=== PATIENT | female | born 1965 | race Caucasian/White ===

== ENCOUNTER 2017-05-19 03:24 | Emergency (ER) | payer MEDICAID ==
[~2017-05-19] VITALS: Ht 165.1 cm; Wt 48.5 kg
[~2017-05-19 03:24] MED LIST: AZITHROMYCIN250 MG ORAL; NORCO 10/3251 EA ORAL; ROXICODONE15 MG ORAL; SOMA350 MG PO; hormone cream TOPIC
[2017-05-19] MEDS ORDERED: HYDROmorphone 1mg/ml Carpuject IM ONE (04:00)
--- NOTE | 2017-05-19 04:03 | Emergency Room Report ---
History of Present Illness General Chief Complaint: Pain Source: Patient Present Illness HPI Is a 52-year-old female with a history of chronic back pain. She had 2 failed back surgery. She is on narcotic regimen with oxycodone and soma. She is seen a pain specialist already. For the last week she has finals and also she has been take care of her parents. Now she complaining of lower back pain is worse than usual. No radiation. No incontinence of bowel or urine. No fever or chills. No trauma. She took her oxycodone as scheduled and doesn't have any more for breakthrough pain. She also complaining of any lump in her right breast. She had it removed a few years back. Now she felt a lump in that area. Denies any fever or chills. No nausea no vomiting. No trauma. No redness. Allergies: Coded Allergies: IBUPROFEN (Verified Allergy, Mild, Rash, 05/28/14) MORPHINE (Verified Allergy, Mild, Itching, 05/28/14) TETRACYCLINE (Verified Allergy, Mild, Rash, 05/28/14) UNKNOWN ASPIRIN (Verified Allergy, Unknown, Rash, 05/28/14) Patient History Past Medical History: see triage record, old chart reviewed Past Surgical History: other Pertinent Family History: none Social History: Denies: smoking Now: No Immunizations: other Reviewed Nursing Documentation: PMH: Agreed, PSxH: Agreed Nursing Documentation-PMH Hx Cardiac Problems: No - ARTHRITIS, SCIATICA, Hx Asthma: No Hx Diabetes: No Hx Cancer: No Hx Gastrointestinal Problems: No Hx Parkinson's Disease: No Hx Seizures: No Review of Systems Eye: Denies: blurred vision, eye pain ENT: Denies: ear pain, nose congestion, throat swelling Respiratory: Denies: cough, shortness of breath Cardiovascular: Denies: chest pain, palpitations Gastrointestinal: Denies: abdominal pain, diarrhea, nausea, vomiting Musculoskeletal: Reports: back pain, Denies: joint pain Skin: Denies: rash Neurological: Denies: headache, numbness Endocrine: Denies: increased thirst, increased urine Hematologic/Lymphatic: Denies: easy bruising All Other Systems: negative except mentioned in HPI Physical Exam Vital Signs Date Time Temp Pulse Resp B/P Pulse Ox O2 Delivery O2 Flow Rate FiO2 05/19/17 03:33 98.1 64 16 155/78 98 Room Air vitals with hypertension Sp02 EP Interpretation: reviewed, normal General Appearance: well appearing, no apparent distress, alert Head: normocephalic, atraumatic Eyes: bilateral eye EOMI, bilateral eye PERRL ENT: hearing grossly normal, normal pharynx Neck: full range of motion, supple, no meningismus Respiratory: chest non-tender, lungs clear, normal breath sounds, other - Right breast laterally, there is hardness that is probably from the end of the sutures. This exam was done with female RN nurse specialist. Cardiovascular #1: regular rate, rhythm, no murmur Gastrointestinal: normal bowel sounds, non tender, no mass, no organomegaly, no bruit, non-distended Musculoskeletal: back normal - Diffuse lower back tenderness. No step-off., gait/station normal, normal range of motion Neurologic: alert, oriented x3 Psychiatric: mood/affect normal Skin: warm/dry Medical Decision Making Diagnostic Impression: Primary Impression: Chronic pain Qualified Codes: G89.4 - Chronic pain syndrome Additional Impressions: Low back pain Qualified Codes: M54.5 - Low back pain Breast mass in female ER Course Patient presents with exacerbation of her chronic back pain. No evidence of cauda equina syndrome, spinal epidural abscess, or neoplastic process. Pain is better after IM Dilaudid. We'll discharge home. Her breast mass is most likely secondary to scar tissue and the tied ends of the sutures. I see no infection or abscess. Last Vital Signs Date Time Temp Pulse Resp B/P Pulse Ox O2 Delivery O2 Flow Rate FiO2 05/19/17 03:33 98.1 64 16 155/78 98 Room Air Status: improved Disposition: HOME, SELF-CARE Condition: Stable Referrals: [facility] (PCP) Additional Instructions: Followup with your Dr. within a week. Return if worse. Followup for your refills. LALO SAMS M.D. May 19, 2017 04:03
[2017-05-19 04:21] VITALS: BP 155/78
== END 2017-05-19 04:20 | disposition home or self-care (01) ==
LOC: EMR 03:54
DX: G89.29 Other chronic pain (principal); M54.9 Dorsalgia, unspecified; Z88.0 Allergy status to penicillin; Z88.6 Allergy status to analgesic agent; N63 Unspecified lump in breast
CPT/HCPCS: 96372; 99283; J1170

== ENCOUNTER 2017-06-17 03:20 | Emergency (ER) | payer MEDICAID ==
[~2017-06-17] VITALS: Ht 165.1 cm; Wt 49.0 kg
[2017-06-17 03:35] VITALS: BP 133/78
--- NOTE | 2017-06-17 03:50 | Emergency Room Report ---
History of Present Illness General Chief Complaint: Lower Back Pain or Injury Source: Patient Present Illness HPI Is a 52-year-old female with history of 2 failed back surgery. She presents with right lower back pain. She is out of her pain medication. Denies any nausea vomiting. Denies any fever or chills. Pain is 10 out of 10. Said that she was helping her dad on his boat and jerked her back. No other complaint. No incontinence of bowel or urine. No fever chills but no radiation. Allergies: Coded Allergies: IBUPROFEN (Verified Allergy, Mild, Rash, 06/17/17) MORPHINE (Verified Allergy, Mild, Itching, 06/17/17) TETRACYCLINE (Verified Allergy, Mild, Rash, 06/17/17) UNKNOWN ASPIRIN (Verified Allergy, Unknown, Rash, 06/17/17) Patient History Past Medical History: see triage record, old chart reviewed Past Surgical History: other Pertinent Family History: none Social History: Denies: smoking Last Menstrual Period: n/a Now: No Immunizations: other Reviewed Nursing Documentation: PMH: Agreed, PSxH: Agreed Nursing Documentation-PMH Past Medical History: No History, Except For Hx Cardiac Problems: No - ARTHRITIS, SCIATICA, Hx Asthma: No Hx Diabetes: No Hx Cancer: No Hx Gastrointestinal Problems: No Hx Parkinson's Disease: No Hx Seizures: No Review of Systems Eye: Denies: blurred vision, eye pain ENT: Denies: ear pain, nose congestion, throat swelling Respiratory: Denies: cough, shortness of breath Cardiovascular: Denies: chest pain, palpitations Gastrointestinal: Denies: abdominal pain, diarrhea, nausea, vomiting Musculoskeletal: Reports: back pain, Denies: joint pain Skin: Denies: rash Neurological: Denies: headache, numbness Endocrine: Denies: increased thirst, increased urine Hematologic/Lymphatic: Denies: easy bruising All Other Systems: negative except mentioned in HPI Physical Exam Vital Signs Date Time Temp Pulse Resp B/P Pulse Ox O2 Delivery O2 Flow Rate FiO2 06/17/17 03:31 98.2 72 16 133/78 98 Room Air vitals normal Sp02 EP Interpretation: reviewed, normal General Appearance: well appearing, no apparent distress, alert Head: normocephalic, atraumatic Eyes: bilateral eye EOMI, bilateral eye PERRL ENT: hearing grossly normal, normal pharynx Neck: full range of motion, supple, no meningismus Respiratory: chest non-tender, lungs clear, normal breath sounds Cardiovascular #1: regular rate, rhythm, no murmur Gastrointestinal: normal bowel sounds, non tender, no mass, no organomegaly, no bruit, non-distended Musculoskeletal: back normal - TTP over lower back diffusely, gait/station normal, normal range of motion Psychiatric: mood/affect normal Skin: warm/dry Medical Decision Making Diagnostic Impression: Primary Impression: Low back pain Qualified Codes: M54.5 - Low back pain Additional Impression: Opiate dependence Qualified Codes: F11.20 - Opioid dependence, uncomplicated ER Course Issue with exacerbation of chronic back pain. No evidence of any fracture dislocation. No evidence of cauda equina syndrome, spinal epidural abscess, or neoplastic process. We'll discharge home. Last Vital Signs Date Time Temp Pulse Resp B/P Pulse Ox O2 Delivery O2 Flow Rate FiO2 06/17/17 03:35 98.2 72 16 133/78 98 Room Air Status: improved Disposition: HOME, SELF-CARE Condition: Stable Referrals: [facility] ([facility]P) Patient Instructions: Back Pain, Adult Additional Instructions: followup with your doctor today. Return for worsening symptoms. LALO SAMS M.D. Jun 17, 2017 03:50
[2017-06-17] MEDS: Oxycodone/Acetaminophen 5-325 ORAL ONE (03:54)
[2017-06-17 04:10] VITALS: BP 129/75
== END 2017-06-17 04:10 | disposition home or self-care (01) ==
LOC: EMR 03:42
DX: M54.5 Low back pain (principal); F11.20 Opioid dependence, uncomplicated; G89.29 Other chronic pain; Z88.6 Allergy status to analgesic agent; Z88.1 Allergy status to other antibiotic agents
CPT/HCPCS: 99282

== ENCOUNTER 2017-09-08 01:41 | Emergency (ER) | payer MEDICAID ==
[~2017-09-08] VITALS: Ht 165.1 cm; Wt 48.5 kg
[2017-09-08] MEDS ORDERED: LISINOPRIL10 MG ORAL (01:59)
[2017-09-08 02:10] VITALS: BP 142/91
[2017-09-08] MEDS ORDERED: HYDROmorphone 1mg/ml Carpuject IM ONE (02:30)
--- NOTE | 2017-09-08 02:32 | Emergency Room Report ---
History of Present Illness General Chief Complaint: Back Pain-No Injury Source: Patient Present Illness HPI Patient reports to previous back surgeries The patient reports that she's on pain management Recently had to help her father including lifting him and moving him she feels that this has flared up her left shoulder and back pain Denies any focal weakness denies any chest pain or shortness of breath pain is 6 /10 localized to the lower back and left shoulder worse with movement denies any other fall or trauma Allergies: Coded Allergies: IBUPROFEN (Verified Allergy, Mild, Rash, 06/17/17) MORPHINE (Verified Allergy, Mild, Itching, 06/17/17) TETRACYCLINE (Verified Allergy, Mild, Rash, 06/17/17) UNKNOWN ASPIRIN (Verified Allergy, Unknown, Rash, 06/17/17) Patient History Past Medical History: see triage record Pertinent Family History: none Reviewed Nursing Documentation: PMH: Agreed, PSxH: Agreed Nursing Documentation-PMH Hx Cardiac Problems: No - ARTHRITIS, SCIATICA, Hx Hypertension: Yes - Hep C Hx Asthma: No Hx Diabetes: No Hx Cancer: No Hx Gastrointestinal Problems: No Hx Parkinson's Disease: No Hx Seizures: No Review of Systems All Other Systems: negative except mentioned in HPI Physical Exam Vital Signs Date Time Temp Pulse Resp B/P (MAP) Pulse Ox O2 Delivery O2 Flow Rate FiO2 09/08/17 01:55 98.2 79 18 144/87 100 Room Air Sp02 EP Interpretation: reviewed, normal General Appearance: no apparent distress Head: normocephalic, atraumatic Eyes: bilateral eye PERRL, bilateral eye EOMI ENT: hearing grossly normal, normal pharynx, TMs + canals normal, uvula midline Neck: full range of motion, supple, no meningismus, no bony tend Respiratory: lungs clear, normal breath sounds, no rhonchi, no respiratory distress, no retraction, no accessory muscle use Cardiovascular #1: normal peripheral pulses, regular rate, rhythm, no edema, no gallop, no JVD, no murmur Gastrointestinal: normal bowel sounds, non tender, soft, no mass, no organomegaly, non-distended, no guarding, no hernia, no pulsatile mass, no rebound Genitourinary: no CVA tenderness Musculoskeletal: other - Patient has discomfort with rotation of the left shoulder, uncomfortable paraspinal diffusely L-spine Neurologic: oriented x3, responsive, data communications engineer III-XII nml as tested, sensory intact Psychiatric: mood/affect normal Skin: normal color, no rash, warm/dry, palpation normal Lymphatic: normal inspection, no adenopathy Medical Decision Making Diagnostic Impression: Primary Impression: Back pain Additional Impression: Opiate dependence ER Course Multiple differentials considered Including but not limited to acute neurological, neurosurgical differentials patient however Has a benign neurological exam Patient has had to present to the emergency room on several occasions over the past few months Patient is also allergic to multiple medications essentially stating that Dilaudid works well with her Patient was given a dose of pain medication here however encouraged to closely follow up with her primary physician and pain management Last Vital Signs Date Time Temp Pulse Resp B/P (MAP) Pulse Ox O2 Delivery O2 Flow Rate FiO2 09/08/17 01:55 98.2 79 18 144/87 100 Room Air Status: improved Disposition: HOME, SELF-CARE Condition: Improved Additional Instructions: Patient is provided with the discharge instructions notified to follow up with primary doctor in the next 2-3 days otherwise return to the er with any worsening symptoms. Please note that this report is being documented using [employer] technology. This can lead to erroneous entry secondary to incorrect interpretation by the dictating instrument. BAUTISTA WAY D.O. Sep 08, 2017 02:32
[2017-09-08 03:28] VITALS: BP 120/75
== END 2017-09-08 03:28 | disposition home or self-care (01) ==
LOC: EMR 03:08
DX: M54.9 Dorsalgia, unspecified (principal); F11.20 Opioid dependence, uncomplicated; I10 Essential (primary) hypertension; B19.20 Unspecified viral hepatitis C without hepatic coma; Z88.6 Allergy status to analgesic agent
CPT/HCPCS: 96372; 99284; J1170

== ENCOUNTER 2017-11-30 22:04 | Emergency (ER) | payer MEDICAID ==
[~2017-11-30] VITALS: Ht 165.1 cm; Wt 48.5 kg
[~2017-11-30 22:04] MED LIST changes: +LISINOPRIL10 MG ORAL
[2017-11-30 22:32] VITALS: BP 130/86
--- NOTE | 2017-11-30 22:59 | Emergency Room Report ---
History of Present Illness General Chief Complaint: Pain Source: Patient, Medical Record Present Illness HPI Is a 52-year-old female with history chronic pain. She is previous back surgery. She presents with chief complaint of neck and back pain. She said this is occurring because she's have to help her father on boat. He has bladder cancer undergoing chemotherapy. She said that: There and lifting him is causing her back and packed up more. She's almost out of her pain medication. She has refill scheduled for Thursday, 2 days from now. Pain is 10 out of 10. No nausea no vomiting. No fever or chills. Allergies: Coded Allergies: IBUPROFEN (Verified Allergy, Mild, Rash, 06/17/17) MORPHINE (Verified Allergy, Mild, Itching, 06/17/17) TETRACYCLINE (Verified Allergy, Mild, Rash, 06/17/17) UNKNOWN ASPIRIN (Verified Allergy, Unknown, Rash, 06/17/17) Patient History Past Medical History: see triage record, old chart reviewed Past Surgical History: other Pertinent Family History: none Social History: Denies: alcohol use Last Menstrual Period: years Now: No Immunizations: other Reviewed Nursing Documentation: PMH: Agreed, PSxH: Agreed Nursing Documentation-PMH Hx Cardiac Problems: No - ARTHRITIS, SCIATICA, ankle surgery Hx Hypertension: Yes - Hep C Hx Asthma: No Hx Diabetes: No Hx Cancer: No Hx Gastrointestinal Problems: No Hx Parkinson's Disease: No Hx Seizures: No Review of Systems Eye: Denies: eye pain, blurred vision ENT: Denies: ear pain, nose congestion, throat swelling Respiratory: Denies: cough, shortness of breath Cardiovascular: Denies: chest pain, palpitations Gastrointestinal: Denies: abdominal pain, diarrhea, nausea, vomiting Musculoskeletal: Reports: back pain, Denies: joint pain Skin: Denies: rash Neurological: Denies: headache, numbness Endocrine: Denies: increased thirst, increased urine Hematologic/Lymphatic: Denies: easy bruising All Other Systems: negative except mentioned in HPI Physical Exam Vital Signs Date Time Temp Pulse Resp B/P (MAP) Pulse Ox O2 Delivery O2 Flow Rate FiO2 11/30/17 22:22 98.2 70 19 130/86 100 Room Air vitals normal Sp02 EP Interpretation: reviewed, normal General Appearance: well appearing, no apparent distress, alert Head: normocephalic, atraumatic Eyes: bilateral eye PERRL, bilateral eye EOMI ENT: hearing grossly normal, normal pharynx Neck: full range of motion, supple, no meningismus Respiratory: chest non-tender, lungs clear, normal breath sounds Cardiovascular #1: regular rate, rhythm, no murmur Gastrointestinal: normal bowel sounds, non tender, no mass, no organomegaly, no bruit, non-distended Musculoskeletal: back normal, gait/station normal, normal range of motion Psychiatric: mood/affect normal Skin: warm/dry Medical Decision Making Diagnostic Impression: Primary Impression: Back pain Qualified Codes: M54.5 - Low back pain Additional Impressions: Chronic pain Qualified Codes: G89.4 - Chronic pain syndrome Opiate dependence Qualified Codes: F11.20 - Opioid dependence, uncomplicated ER Course Patient presents with exacerbation of chronic pain. No evidence of cauda equina syndrome, spinal after abscess or neoplastic process. She said that she can take morphine. Last Vital Signs Date Time Temp Pulse Resp B/P (MAP) Pulse Ox O2 Delivery O2 Flow Rate FiO2 11/30/17 22:22 98.2 70 19 130/86 100 Room Air Status: improved Disposition: HOME, SELF-CARE Condition: Stable Referrals: [facility] ([facility]P) Patient Instructions: Chronic Pain Additional Instructions: Followup with your DrEmre for refill your medication. Return if symptom worsen. LALO SAMS M.D. Nov 30, 2017 22:59
[2017-11-30] MEDS ORDERED: Morphine Sulfate 4mg/ml Inj IM ONE (23:00)
[2017-11-30 23:04] VITALS: BP 130/86
== END 2017-11-30 23:04 | disposition home or self-care (01) ==
LOC: EMR 22:30
DX: M54.9 Dorsalgia, unspecified (principal); M54.2 Cervicalgia; G89.29 Other chronic pain; C67.9 Malignant neoplasm of bladder, unspecified; Z79.899 Other long term (current) drug therapy; F11.20 Opioid dependence, uncomplicated; I10 Essential (primary) hypertension; Z88.6 Allergy status to analgesic agent; Z88.1 Allergy status to other antibiotic agents
CPT/HCPCS: 96372; 99283; J2270

== ENCOUNTER 2017-12-27 12:19 | Emergency (ER) | payer MEDICAID ==
[~2017-12-27] VITALS: Ht 165.1 cm; Wt 49.0 kg
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
[2017-12-27] MEDS ORDERED: oxyCODONE HCL/Acetaminophen 5/325mg ORAL ONE (13:00)
[2017-12-27] MEDS ORDERED: HYDROmorphone 1mg/ml Carpuject IM ONE (13:45)
[2017-12-27 18:24] VITALS: BP 136/86
[2017-12-27 18:25] VITALS: BP 136/86
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
== END 2017-12-27 18:25 | disposition home or self-care (01) ==
LOC: EMR 12:52
DX: G89.29 Other chronic pain (principal); M54.2 Cervicalgia; F11.20 Opioid dependence, uncomplicated; V43.52XA Car driver injured in collision with other type car in traffic accident, initial encounter; Y92.410 Unspecified street and highway as the place of occurrence of the external cause; I10 Essential (primary) hypertension; Z88.6 Allergy status to analgesic agent; Z88.1 Allergy status to other antibiotic agents
CPT/HCPCS: 72040; 96372; 99284; J1170

== ENCOUNTER 2018-02-23 19:53 | Emergency (ER) | payer MEDICAID ==
[~2018-02-23] VITALS: Ht 165.1 cm; Wt 49.4 kg
[2018-02-23] MEDS ORDERED: LIDOCAINE700 M1 TP (21:01)
[2018-02-23] MEDS: Dexamethasone 4mg/ml vial IM ONE (21:19)
[2018-02-23] MEDS: Morphine Sulfate 4mg/ml Inj IM ONE (21:20)
--- NOTE | 2018-02-23 21:20 | Emergency Room Report ---
History of Present Illness General Chief Complaint: Pain Present Illness HPI Patient's 53-year-old female who presented after increased low back pain and neck pain. Patient prior history of chronic pain. Patient was given the previously taking oxycodone as well as Soma. Patient had previous back surgery many years ago. Patient had both anterior and posterior disc surgery. Patient states that she been having intermittent bladder spasms. She reports having normal bowel movements. She denies any fever. Allergies: Coded Allergies: IBUPROFEN (Verified Allergy, Mild, Rash, 06/17/17) TETRACYCLINE (Verified Allergy, Mild, Rash, 06/17/17) UNKNOWN ASPIRIN (Verified Allergy, Unknown, Rash, 06/17/17) Patient History Past Medical History: see triage record Reviewed Nursing Documentation: PMH: Agreed; PSxH: Agreed Nursing Documentation-PMH Hx Cardiac Problems: No - ARTHRITIS, SCIATICA, ankle surgery Hx Hypertension: Yes - Hep C Hx Asthma: No Hx Diabetes: No Hx Cancer: No Hx Gastrointestinal Problems: No Hx Parkinson's Disease: No Hx Seizures: No Review of Systems All Other Systems: negative except mentioned in HPI Physical Exam Vital Signs Date Time Temp Pulse Resp B/P (MAP) Pulse Ox O2 Delivery O2 Flow Rate FiO2 02/23/18 20:24 98.2 74 16 135/69 97 Room Air 98.2 General Appearance: well appearing, no apparent distress, alert, GCS 15, non- toxic Head: normocephalic, atraumatic ENT: hearing grossly normal, normal voice Neck: full range of motion, supple Respiratory: no respiratory distress, speaking full sentences Cardiovascular #1: normal inspection, regular rate, rhythm, no edema Gastrointestinal: normal inspection, soft, no mass Musculoskeletal: no calf tenderness Neurologic: normal inspection, alert, oriented x3, responsive, tripe cooker III-XII nml as tested, normal gait Psychiatric: mood/affect normal Skin: normal inspection, no rash Medical Decision Making Diagnostic Impression: Primary Impression: Chronic pain ER Course Patient presented for back pain.Differential diagnosis included but was not limited to herniated disc, cauda equina syndrome, abdominal aortic aneurysm, perforated ulcer, spinal epidural abscess, spinal stenosis, lumbar fracture, metastatic lesion, pyelonephritis. Patient has a benign exam and does not appear to require any further imaging or laboratory testing at this time. The patient was given medications for pain. She appears to have some back discomfort however this does not appear to be limiting her ability to walk or strength. Patient is advised follow-up with her primary care physician. The patient was given Decadron as well as morphine for pain. Last Vital Signs Date Time Temp Pulse Resp B/P (MAP) Pulse Ox O2 Delivery O2 Flow Rate FiO2 02/23/18 20:24 98.2 74 16 135/69 97 Room Air 98.2 Status: improved Disposition: HOME, SELF-CARE Condition: Stable Scripts Lidocaine (Lidocaine) 1 Each Adh..patch 700 MG TP DAILY, #30 PATCH Prov: Bull Caraballo 02/23/18 Patient Instructions: Chronic Back Pain Bull Caraballo Feb 23, 2018 21:20
[2018-02-23 21:32] LABS: APPEARANCE,URINE CLEAR; BILIRUBIN, URINE NEGATIVE (NEGATIVE); COLOR,URINE YELLOW; GLUCOSE, URINE (UA) NEGATIVE (NEGATIVE); KETONES,URINE NEGATIVE (NEGATIVE); LEUKOCYTE ESTERASE ,URINE 1+ (NEGATIVE); NITRITE,URINE NEGATIVE (NEGATIVE); PH,URINE 8 (4.5-8.0); PROTEIN,URINE NEGATIVE (NEGATIVE); UROBILINOGEN,URINE NORMAL MG/DL (0.0-1.0)
[2018-02-23 21:45] VITALS: BP 135/69
== END 2018-02-23 21:45 | disposition home or self-care (01) ==
LOC: EMR 20:35
DX: G89.29 Other chronic pain (principal); M54.5 Low back pain; M54.2 Cervicalgia; Z88.6 Allergy status to analgesic agent; Z88.1 Allergy status to other antibiotic agents
CPT/HCPCS: 81003; 81025; 96372; 99283; J1100; J2270

== ENCOUNTER 2018-05-18 20:17 | Emergency (ER) | payer MEDICAID ==
[~2018-05-18] VITALS: Ht 165.1 cm; Wt 48.5 kg
[~2018-05-18 20:17] MED LIST changes: +LIDOCAINE700 M1 TP
[2018-05-18] MEDS ORDERED: Morphine Sulfate 2mg/ml Inj IM ONE (20:45)
[2018-05-18 21:26] VITALS: BP 126/87
--- NOTE | 2018-05-20 06:47 | Emergency Room Report ---
History of Present Illness General Chief Complaint: Back Pain-No Injury Source: Patient Present Illness HPI 33-year-old female presents ED complaining of neck pain and back pain. History of chronic pain to her back with multiple back surgeries. States that she was helping lift her father today, who is in the hospital which triggered her back pain. States she took her pain medications at home which are not helping. Is on multiple medications for pain. Is currently being seen by pain management. Pain is a 10 out of 10, throbbing, nonradiating. Denies any bowel or bladder incontinence. Denies any leg or motor weakness. No other aggravating or relieving factors. Denies any other associated symptoms Allergies: Coded Allergies: IBUPROFEN (Verified Allergy, Mild, Rash, 06/17/17) TETRACYCLINE (Verified Allergy, Mild, Rash, 06/17/17) UNKNOWN ASPIRIN (Verified Allergy, Unknown, Rash, 06/17/17) Patient History Past Medical History: none Past Surgical History: none Pertinent Family History: none Social History: Denies: smoking, alcohol use, drug use Now: No Immunizations: UTD Reviewed Nursing Documentation: PMH: Agreed; PSxH: Agreed Nursing Documentation-PMH Hx Hypertension: Yes - Hep C Hx Asthma: No Hx Diabetes: No Hx Cancer: No Hx Gastrointestinal Problems: No Hx Parkinson's Disease: No Hx Seizures: No Review of Systems All Other Systems: negative except mentioned in HPI Physical Exam Vital Signs Date Time Temp Pulse Resp B/P (MAP) Pulse Ox O2 Delivery O2 Flow Rate FiO2 05/18/18 20:25 98.2 88 16 126/87 96 Room Air 98.2 Sp02 EP Interpretation: reviewed, normal General Appearance: no apparent distress, alert, GCS 15, non-toxic Head: normocephalic, atraumatic Eyes: bilateral eye normal inspection, bilateral eye PERRL ENT: hearing grossly normal, normal pharynx, no angioedema, normal voice Neck: full range of motion, supple/symm/no masses Respiratory: chest non-tender, lungs clear, normal breath sounds, speaking full sentences Cardiovascular #1: regular rate, rhythm, no edema Cardiovascular #2: 2+ carotid (R), 2+ carotid (L), 2+ radial (R), 2+ radial (L) , 2+ dorsalis pedis (R), 2+ dorsalis pedis (L) Gastrointestinal: normal bowel sounds, non tender, soft, non-distended, no guarding, no rebound Rectal: deferred Genitourinary: normal inspection, no CVA tenderness Musculoskeletal: gait/station normal, normal range of motion, non-tender, tender - paraspinal lumbar tenderness Neurologic: alert, oriented x3, responsive, motor strength/tone normal, sensory intact, speech normal Psychiatric: judgement/insight normal, memory normal, mood/affect normal, no suicidal/homicidal ideation Reflexes: 3+ bicep (R), 3+ bicep (L), 3+ tricep (R), 3+ tricep (L), 3+ knee (R) , 3+ knee (L) Skin: normal color, no rash, warm/dry, well hydrated Lymphatic: no adenopathy Medical Decision Making Diagnostic Impression: Primary Impression: Chronic pain Qualified Codes: G89.29 - Other chronic pain Additional Impression: Opiate dependence Qualified Codes: F11.29 - Opioid dependence with unspecified opioid-induced disorder ER Course Hospital Course 53-year-old female presents ED complaining of lower back pain. Differential diagnoses include: pyelonephritis, kidney stone, muscle strain, Lspine fracture Clinical course Patient placed on stretcher. After initial history and physical, I reviewed EMR. Patient has been here multiple times for back pain. On previous documentation patient had documented the same story of caring for her father which triggered her back pain I discussed this with the patient. Patient is made aware that she will not receive any additional prescriptions. I agreed to provide her with one time dose of pain medication here however I explained to the patient that the ER is not an appropriate avenue for chronic pain complaints. Patient needs to follow- up with her pain management doctor upon reassessment patient states pain has improved. Diagnosis - chronic pain, opiate dependence Stable and discharged to home. Followup with PMD/pain management. Return to ED if symptoms recur or worsen Last Vital Signs Date Time Temp Pulse Resp B/P (MAP) Pulse Ox O2 Delivery O2 Flow Rate FiO2 05/18/18 21:26 98.2 88 16 126/87 96 Room Air 98.2 Status: improved Disposition: HOME, SELF-CARE Condition: Stable Referrals: [facility]ERR[facility] (PCP) Patient Instructions: Back Pain, Adult Jhon Arizmendi MD May 20, 2018 06:47
== END 2018-05-18 21:40 | disposition home or self-care (01) ==
LOC: EMR 20:50
DX: G89.29 Other chronic pain (principal); M54.2 Cervicalgia; F11.20 Opioid dependence, uncomplicated
CPT/HCPCS: 96372; 99284; J2270

== ENCOUNTER 2018-08-27 19:53 | Emergency (ER) | payer MEDICAID ==
[~2018-08-27] VITALS: Ht 165.1 cm; Wt 48.5 kg
[2018-08-27 20:03] VITALS: BP 130/82
[2018-08-27 20:52] VITALS: BP 130/82
--- NOTE | 2018-08-30 22:47 | Emergency Room Report ---
History of Present Illness General Chief Complaint: Pain Source: Patient, Medical Record Present Illness HPI 33-year-old female presents ED for evaluation. Patient states she's had knee pain for many months now and had outpatient MRI completed of her right knee. Patient states she was told she could come to the emergency room to have the MRI read. Patient states she's had chronic knee pain for many months now. Throbbing, 10 out of 10, nonradiating. States that she ran out of her pain medication prescribed by her PMD. No other aggravating relieving factors. Denies any other associated symptoms Allergies: Coded Allergies: IBUPROFEN (Verified Allergy, Mild, Rash, 08/27/18) TETRACYCLINE (Verified Allergy, Mild, Rash, 08/27/18) UNKNOWN ASPIRIN (Verified Allergy, Unknown, Rash, 08/27/18) Patient History Past Medical History: other - Hep C Past Surgical History: none Pertinent Family History: none Social History: Denies: smoking, alcohol use, drug use Now: No Immunizations: UTD Reviewed Nursing Documentation: PMH: Agreed; PSxH: Agreed Nursing Documentation-PMH Past Medical History: No History, Except For Hx Cardiac Problems: No - ARTHRITIS, SCIATICA, ankle surgery Hx Hypertension: Yes - Hep C Hx Asthma: No Hx Diabetes: No Hx Cancer: No Hx Gastrointestinal Problems: No Hx Parkinson's Disease: No Hx Seizures: No Review of Systems All Other Systems: negative except mentioned in HPI Physical Exam Vital Signs Date Time Temp Pulse Resp B/P (MAP) Pulse Ox O2 Delivery O2 Flow Rate FiO2 08/27/18 20:00 98.2 57 17 134/84 98 Room Air 98.2 Sp02 EP Interpretation: reviewed, normal General Appearance: no apparent distress, alert, GCS 15, non-toxic Head: normocephalic Eyes: bilateral eye normal inspection, bilateral eye PERRL ENT: normal ENT inspection Neck: normal inspection Respiratory: normal inspection Cardiovascular #1: normal inspection Gastrointestinal: normal inspection Rectal: deferred Genitourinary: no CVA tenderness Musculoskeletal: tender - R knee Neurologic: alert, oriented x3, responsive, motor strength/tone normal, sensory intact, speech normal Psychiatric: normal inspection Skin: normal inspection Lymphatic: normal inspection Medical Decision Making Diagnostic Impression: Primary Impression: Chronic pain Qualified Codes: G89.4 - Chronic pain syndrome Additional Impression: Opiate dependence Qualified Codes: F11.29 - Opioid dependence with unspecified opioid-induced disorder ER Course 53-year-old female presents ED requesting an MRI be read. MRI done as outpatient differential - knee injury, chronic pain, osteoarhtrits Patient placed in chair. After initial history and physical I discussed with the patient. I explained that it is not appropriate for an emergency physician to read an MRI of the knee performed in outpatient setting. As MRI was done on an outpatient basis there is no emergency indication. I also explained that it is preferable for an orthopedic surgeon or radiologist to read this study. I explained that I will provide her with orthopedic referrals to properly evaluate her knee and evaluate her MRI Patient is then requesting for refills of her pain medication. I reviewed [facility] and patient receives extensive narcotic prescriptions on a monthly basis. I explained to the patient that I cannot provide her with any medication here or refills. Patient repeatedly asked why she cannot receive medication. I explained that the patient can go to her PMD if she requires additional medication Diagnosischronic pain, opiate dependence Stable and discharged to home. Follow-up with PMD/ortho. Return to ED if symptoms recur or worsen Last Vital Signs Date Time Temp Pulse Resp B/P (MAP) Pulse Ox O2 Delivery O2 Flow Rate FiO2 08/27/18 20:52 98.5 60 18 130/82 98 Room Air 98.5 Status: improved Disposition: HOME, SELF-CARE Condition: Stable Referrals: NON PHYSICIAN (PCP) Patient Instructions: Chronic Pain Jhon Arizmendi MD Aug 30, 2018 22:47
== END 2018-08-27 22:00 | disposition home or self-care (01) ==
LOC: EMR 21:56
DX: G89.4 Chronic pain syndrome (principal); F11.29 Opioid dependence with unspecified opioid-induced disorder; I10 Essential (primary) hypertension; M25.561 Pain in right knee; Z88.6 Allergy status to analgesic agent; Z88.8 Allergy status to other drugs, medicaments and biological substances
CPT/HCPCS: 99282

== ENCOUNTER 2019-03-13 05:45 | Emergency (ER) | payer MEDICAID ==
[~2019-03-13] VITALS: Ht 165.1 cm; Wt 48.5 kg
--- NOTE | 2019-03-13 06:03 | NUR ---
ED Nurse Note: Patient presents with complaints of pain at neck, back and arthritic areas. Patient has history of chronic pain,
[2019-03-13 06:04] VITALS: BP 128/76
--- NOTE | 2019-03-13 06:14 | Emergency Room Report ---
History of Present Illness General Chief Complaint: Pain Source: Patient Present Illness HPI Presents with 5 days worsened neck pain. She feels with the change in weather and also had she's been sleeping. She has OxyContin at home but has not been taking it because it hasn't helped her. She also has chronic pain in her right knee. She apparently has of a point with her orthopedic doctor in March. She's been he had polyuria chronic acid injections at that time. The patient has had back surgeries. Patient denies any fevers or increased weakness. She just looking to get relief from the pain at this time. Allergies: Coded Allergies: IBUPROFEN (Verified Allergy, Mild, Rash, 08/27/18) TETRACYCLINE (Verified Allergy, Mild, Rash, 08/27/18) UNKNOWN ASPIRIN (Verified Allergy, Unknown, Rash, 08/27/18) Patient History Past Medical History: see triage record Social History: Denies: smoking Social History Narrative [place] on a boat Last Menstrual Period: JESSIE Reviewed Nursing Documentation: PMH: Agreed; PSxH: Agreed Nursing Documentation-PMH Past Medical History: No History, Except For Hx Cardiac Problems: No - ARTHRITIS, SCIATICA, ankle surgery Hx Hypertension: Yes - Hep C Hx Asthma: No Hx Diabetes: No Hx Cancer: No Hx Gastrointestinal Problems: No Hx Parkinson's Disease: No Hx Seizures: No Review of Systems All Other Systems: negative except mentioned in HPI Physical Exam Vital Signs Date Time Temp Pulse Resp B/P (MAP) Pulse Ox O2 Delivery O2 Flow Rate FiO2 03/13/19 05:50 98.1 78 16 128/76 98 Room Air Sp02 EP Interpretation: reviewed, normal General Appearance: no apparent distress, alert, GCS 15, thin Head: normocephalic, atraumatic Eyes: bilateral eye normal inspection, bilateral eye PERRL, bilateral eye EOMI ENT: hearing grossly normal, normal voice Neck: full range of motion, supple, no bony tend, tender - paraspinous muscles Respiratory: no respiratory distress, speaking full sentences Cardiovascular #1: normal peripheral pulses, regular rate, rhythm Gastrointestinal: scaphoid Musculoskeletal: no calf tenderness, other - lumbar tenderness but able to walk , sit and lay down Neurologic: alert, motor strength/tone normal, sensory intact, normal gait Psychiatric: mood/affect normal Skin: no rash Medical Decision Making Diagnostic Impression: Primary Impression: Chronic pain Qualified Codes: G89.29 - Other chronic pain Additional Impression: Exacerbation of chronic neck pain ER Course Patient presents with an exacerbation of her neck pain She is requesting medication to help treat the breakthrough pain. No red flag symptoms. Patient denies any dysuria. Signed out to Dr. Maynard. Status: improved Disposition: HOME, SELF-CARE Condition: Improved Russ Rowe MD Mar 13, 2019 06:14
--- NOTE | 2019-03-13 06:42 | NUR ---
ED Nurse Note: change of shift ERMD at bedside.
[2019-03-13] MEDS ORDERED: Morphine Sulfate 2mg/ml Inj(IV/IM USE ONLY) IM ONE (06:45)
--- NOTE | 2019-03-13 06:58 | NUR ---
ED Nurse Note: Patient tolerated injection well. Patient ambulated to restroom with steady gait.
--- NOTE | 2019-03-13 07:05 | NUR ---
ED Nurse Note: Patient discharged to [employer], patient ambulatory with steady gait, no s/s of acute distress. Patient ID band removed. Patient verbalized understanding of discharge instructions. Patient accompanied to discharge window.
[2019-03-13 07:07] VITALS: BP 128/76
--- NOTE | 2019-03-13 07:09 | Emergency Room Report ---
History of Present Illness General Chief Complaint: Pain Source: Patient Present Illness HPI Patient presents with complaints of increased pain in the lower back right knee and more recently the neck area Patient reports that she also has arthritis in her neck and feels that is exacerbated Denies any chest pain or shortness of breath denies any vomiting or diarrhea denies any fevers or chills Patient has had several visits previously with similar complaints She has had extensive outpatient follow-up as well including multiple MRIs Allergies: Coded Allergies: IBUPROFEN (Verified Allergy, Mild, Rash, 08/27/18) TETRACYCLINE (Verified Allergy, Mild, Rash, 08/27/18) UNKNOWN ASPIRIN (Verified Allergy, Unknown, Rash, 08/27/18) Patient History Past Medical History: see triage record Pertinent Family History: none Last Menstrual Period: JESSIE Reviewed Nursing Documentation: PMH: Agreed; PSxH: Agreed Nursing Documentation-PMH Past Medical History: No History, Except For Hx Cardiac Problems: No - ARTHRITIS, SCIATICA, ankle surgery Hx Hypertension: Yes - Hep C Hx Asthma: No Hx Diabetes: No Hx Cancer: No Hx Gastrointestinal Problems: No Hx Parkinson's Disease: No Hx Seizures: No Review of Systems All Other Systems: negative except mentioned in HPI Physical Exam Vital Signs Date Time Temp Pulse Resp B/P (MAP) Pulse Ox O2 Delivery O2 Flow Rate FiO2 03/13/19 05:50 98.1 78 16 128/76 98 Room Air Sp02 EP Interpretation: reviewed, normal General Appearance: mild distress - Mildly uncomfortable Head: normocephalic, atraumatic Eyes: bilateral eye PERRL, bilateral eye EOMI ENT: normal pharynx Neck: supple, other - Some discomfort paraspinal C3-C4 no midline step-off Respiratory: lungs clear, no retraction, no accessory muscle use Cardiovascular #1: regular rate, rhythm Musculoskeletal: other - Patient ambulatory no obvious focal deficit, complains of discomfort to right knee with any touch Neurologic: alert, oriented x3 Skin: normal color, no rash, warm/dry Lymphatic: no adenopathy Medical Decision Making Diagnostic Impression: Primary Impression: Arthralgia Additional Impression: Back pain ER Course Patient appears to have an exacerbation of her underlying discomfort and chronic pathology consideration for other infectious and metabolic disorders are made Patient remains hemodynamically stable Patient's last visit to our emergency room was in August and appears to have had her discomfort under control Given the patient's presentation IM injection was provided Patient observed and remains hemodynamically stable and appropriate for close outpatient follow-up Last Vital Signs Date Time Temp Pulse Resp B/P (MAP) Pulse Ox O2 Delivery O2 Flow Rate FiO2 03/13/19 06:04 98.1 89 16 128/76 98 Room Air Status: improved Disposition: HOME, SELF-CARE Condition: Improved Referrals: [facility] ([facility]P) Patient Instructions: Back Pain, Adult, [id number], Joint Pain Additional Instructions: Patient is provided with the discharge instructions notified to follow up with primary doctor in the next 2-3 days otherwise return to the er with any worsening symptoms. Please note that this report is being documented using [employer] technology. This can lead to erroneous entry secondary to incorrect interpretation by the dictating instrument. Jad Maynard DO Mar 13, 2019 07:09
== END 2019-03-13 07:07 | disposition home or self-care (01) ==
LOC: EMR 06:23
DX: M54.5 Low back pain (principal); M25.561 Pain in right knee; M54.2 Cervicalgia; I10 Essential (primary) hypertension; Z86.19 Personal history of other infectious and parasitic diseases; M19.90 Unspecified osteoarthritis, unspecified site; Z88.6 Allergy status to analgesic agent
CPT/HCPCS: 96372; 99283; J2270

== ENCOUNTER 2019-06-03 02:01 | Emergency (ER) | payer MEDICAID ==
[~2019-06-03] VITALS: Ht 165.1 cm; Wt 48.5 kg
[2019-06-03 02:04] VITALS: BP 142/90
[2019-06-03 02:10] VITALS: BP 142/90
--- NOTE | 2019-06-03 02:10 | NUR ---
ED Nurse Note: Pt walked in c/o head, neck, back pain from taking Mavyret 100mg/40mg for Hep C. Pt stated she has been hurting for a few months. Pt has hx of arthritis. VSS. Pt is A&Ox4
--- NOTE | 2019-06-03 02:34 | Emergency Room Report ---
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 She presents with chief complaint of neck and back pain is been ongoing for the last few days. This got worse because she is taking hepatitis C medication. Her liver doctor told her that this will happen. She has been off of it for 3 days and pain is been severe. Her oxycodone at home is not helping. No nausea no vomiting. No fever chills. No incontinence of bowel or urine. No trauma. Pain is 9 out of 10. Worse with movement. Allergies: Coded Allergies: IBUPROFEN (Verified Allergy, Mild, Rash, 08/27/18) TETRACYCLINE (Verified Allergy, Mild, Rash, 08/27/18) UNKNOWN ASPIRIN (Verified Allergy, Unknown, Rash, 08/27/18) Patient History Past Medical History: see triage record, old chart reviewed Past Surgical History: none Pertinent Family History: none Social History: Denies: smoking Now: No Immunizations: other Reviewed Nursing Documentation: PMH: Agreed; PSxH: Agreed Nursing Documentation-PMH Hx Cardiac Problems: No - ARTHRITIS, SCIATICA, ankle surgery Hx Hypertension: Yes - Hep C Hx Asthma: No Hx Diabetes: No Hx Cancer: No Hx Gastrointestinal Problems: No Hx Parkinson's Disease: No Hx Seizures: No Review of Systems Eye: Denies: eye pain, blurred vision ENT: Denies: ear pain, nose congestion, throat swelling Respiratory: Denies: cough, shortness of breath Cardiovascular: Denies: chest pain, palpitations Gastrointestinal: Denies: abdominal pain, diarrhea, nausea, vomiting Musculoskeletal: Reports: back pain, joint pain Skin: Denies: rash Neurological: Denies: headache, numbness Endocrine: Denies: increased thirst, increased urine Hematologic/Lymphatic: Denies: easy bruising All Other Systems: negative except mentioned in HPI Physical Exam Vital Signs Date Time Temp Pulse Resp B/P (MAP) Pulse Ox O2 Delivery O2 Flow Rate FiO2 06/03/19 02:04 97.5 70 16 142/90 (107) 99 Room Air Vitals normal Sp02 EP Interpretation: reviewed, normal General Appearance: well appearing, no apparent distress, alert Head: normocephalic, atraumatic Eyes: bilateral eye PERRL, bilateral eye EOMI ENT: hearing grossly normal, normal pharynx Neck: full range of motion, supple, no meningismus Respiratory: chest non-tender, lungs clear, normal breath sounds Cardiovascular #1: regular rate, rhythm, no murmur Gastrointestinal: normal bowel sounds, non tender, no mass, no organomegaly, no bruit, non-distended Musculoskeletal: back normal, gait/station normal, normal range of motion Psychiatric: mood/affect normal Medical Decision Making Diagnostic Impression: Primary Impression: Exacerbation of chronic back pain ER Course Patient presents with exacerbation of her chronic pain. No evidence of trauma. No evidence of cauda equina syndrome, spinal epidural abscess or neoplastic process. Will discharge home. Last Vital Signs Date Time Temp Pulse Resp B/P (MAP) Pulse Ox O2 Delivery O2 Flow Rate FiO2 06/03/19 02:04 97.5 70 16 142/90 (107) 99 Room Air Status: improved Disposition: HOME, SELF-CARE Condition: Stable Additional Instructions: Follow-up with your doctor in 7 days. Return if symptoms worsen. Gautam Bourgeois MD Jun 03, 2019 02:34
--- NOTE | 2019-06-03 02:40 | NUR ---
ER DISCHARGE NOTE: Patient is cleared to be discharged per ERMD, pt is aox4, on room air, with stable vital signs. pt was given dc and prescription instructions, pt was able to verbalize understanding, pt id band removed. pt is able to ambulate with steady gait. pt took all belongings.
== END 2019-06-03 02:40 | disposition home or self-care (01) ==
LOC: EMR 02:20
DX: M54.9 Dorsalgia, unspecified (principal); G89.29 Other chronic pain; B19.20 Unspecified viral hepatitis C without hepatic coma; Z88.6 Allergy status to analgesic agent; Z88.1 Allergy status to other antibiotic agents
CPT/HCPCS: 96372; 99283; J1170

== ENCOUNTER 2019-08-03 00:28 | Emergency (ER) | payer MEDICAID ==
[~2019-08-03] VITALS: Ht 165.1 cm; Wt 48.5 kg
--- NOTE | 2019-08-03 00:45 | NUR ---
ED Nurse Note: Recieved pt on steve from home, awake, alert and oriented x 4, pt here for increased neck pain, pt has chronic neck pain s/p surgeries some years ago and at times has sudden increase in pain, denies injury, fall or any other complaints or discomforts. pt ambulatory with steady gait, drove self here, tp to be medicated with IM meds and d/c before meds reach peak, pt denies cp, sob, or any other complaints.
[2019-08-03] MEDS ORDERED: LIDODERM700 M1 TOPIC (00:50)
--- NOTE | 2019-08-03 00:50 | Emergency Room Report ---
History of Present Illness General Chief Complaint: Pain Source: Patient Present Illness HPI 54-year-old female history of multiple back surgeries presents with acute exacerbation of chronic back pain, she states she was lifting her mother 5 days ago now she has a right lower back ache, worse with movement alleviated with rest moderate severity symptoms are intermittent, she denies any bowel bladder retention/incontinence, no perianal numbness no focal weakness in the lower extremities Allergies: Coded Allergies: IBUPROFEN (Verified Allergy, Mild, Rash, 08/27/18) TETRACYCLINE (Verified Allergy, Mild, Rash, 08/27/18) UNKNOWN ASPIRIN (Verified Allergy, Unknown, Rash, 08/27/18) Patient History Past Medical History: see triage record Now: No Reviewed Nursing Documentation: PMH: Agreed; PSxH: Agreed Nursing Documentation-PMH Past Medical History: No History, Except For Hx Cardiac Problems: No - ARTHRITIS, SCIATICA, ankle surgery Hx Hypertension: Yes - Hep C Hx Asthma: No Hx Diabetes: No Hx Cancer: No Hx Gastrointestinal Problems: No Hx Parkinson's Disease: No Hx Seizures: No Review of Systems All Other Systems: negative except mentioned in HPI Physical Exam Vital Signs Date Time Temp Pulse Resp B/P (MAP) Pulse Ox O2 Delivery O2 Flow Rate FiO2 08/03/19 00:30 98.2 77 12 133/79 (97) 99 Room Air Sp02 EP Interpretation: reviewed, normal General Appearance: well appearing, no apparent distress, alert Head: normocephalic, atraumatic Eyes: bilateral eye PERRL, bilateral eye EOMI ENT: uvula midline, moist mucus membranes Neck: supple, thyroid normal, supple/symm/no masses Respiratory: lungs clear, no respiratory distress, no retraction, no accessory muscle use Cardiovascular #1: normal peripheral pulses, regular rate, rhythm, no edema, no gallop, no murmur Gastrointestinal: non tender, soft, no guarding, no rebound Musculoskeletal: normal inspection Neurologic: alert, oriented x3 Psychiatric: mood/affect normal Skin: no rash, warm/dry Medical Decision Making Diagnostic Impression: Primary Impression: Acute exacerbation of chronic low back pain ER Course The patient presents with acute onset of back pain after lifting her mother. Clinically this patient can be ruled out for serious pathology given there is a completely normal neurological exam, no history of IV drug use, and no history of bowel or bladder incontinence, no perianal numbness/tingling, no constipation or urinary retention. Once the patient's pain was adequately controlled, the patient was able to ambulate and be discharged in stable condition with anticipatory guidance provided. Last Vital Signs Date Time Temp Pulse Resp B/P (MAP) Pulse Ox O2 Delivery O2 Flow Rate FiO2 08/03/19 00:30 98.2 77 12 133/79 (97) 99 Room Air Disposition: HOME, SELF-CARE Condition: Stable Scripts Lidocaine Patch* (Lidoderm Patch*) 1 Each Adh..patch 1 PATCH TOPIC DAILY, #7 PATCH 0 Refills Patch(es) may remain in place for up to 12 hours in any 24-hour period. Prov: Christian Chaparro MD 08/03/19 Referrals: [facility]P) [facility] L[facility]e [facility]. [facility] Patient Instructions: Back Pain, Adult, [id number] Additional Instructions: The patient was provided with discharge instructions, notified to follow-up with a primary care doctor and or specialist in the next 24-48 hours, and to return to the ED if they have worsening of their symptoms. Please note that this report is being documented using [employer] technology. This can lead to erroneous entry secondary to incorrect interpretation by the dictating instrument. Christian Chaparro MD Aug 03, 2019 00:50
[2019-08-03] MEDS ORDERED: Ondansetron ODT 8mg tab ORAL ONE (01:00)
[2019-08-03] MEDS ORDERED: Hydromorphone 0.5mg/0.5ml inj IM ONE (01:00)
[2019-08-03 01:25] VITALS: BP 129/77
[2019-08-03 01:30] VITALS: BP 129/77
--- NOTE | 2019-08-03 01:30 | NUR ---
ER DISCHARGE NOTE: Patient is cleared to be discharged per ERMD, pt is aox4, on room air, with stable vital signs. pt was given dc and prescription instructions, pt was able to verbalize understanding, pt id band removed without complications. pt is able to ambulate with steady gait. pt took all belongings.
== END 2019-08-03 01:30 | disposition home or self-care (01) ==
LOC: EMR 00:45
DX: M54.5 Low back pain (principal); G89.29 Other chronic pain; B19.20 Unspecified viral hepatitis C without hepatic coma; M19.90 Unspecified osteoarthritis, unspecified site; Z88.8 Allergy status to other drugs, medicaments and biological substances; Z88.1 Allergy status to other antibiotic agents
CPT/HCPCS: 96372; J1170; Q0162; Z7502; 99283

== ENCOUNTER 2019-11-03 06:06 | Emergency (ER) | payer MEDICAID ==
[~2019-11-03] VITALS: Ht 165.1 cm; Wt 48.5 kg
[~2019-11-03 06:06] MED LIST changes: +LIDODERM700 M1 TOPIC
--- NOTE | 2019-11-03 06:15 | NUR ---
ED Nurse Note: pt walked in c/o back pain, right knee pain, toothache and headache. Pt NAD, VSS, will continue to monitor.
[2019-11-03 06:20] VITALS: BP 120/69
[2019-11-03] MEDS: Tylenol #3 tab (300mg/30mg) ORAL ONE ×2 (06:56→07:04)
--- NOTE | 2019-11-03 07:00 | NUR ---
ED Nurse Note: Pt refused to take tylenol stating "this will not help me". ERMD notified
--- NOTE | 2019-11-03 07:11 | NUR ---
HAND-OFF: Report given to Venancio CHRISTOPHER.
[2019-11-03 07:13] VITALS: BP 122/73
--- NOTE | 2019-11-03 07:13 | NUR ---
ED Nurse Note: Received report from Loi Werner RN.
--- NOTE | 2019-11-03 07:38 | Emergency Room Report ---
History of Present Illness General Chief Complaint: Pain Source: Patient, Medical Record Present Illness HPI This patient has a history of chronic pain. She is seen regularly here in the emergency department. She states that she is having an exacerbation of her back pain, neck pain and knee pain. She states she tried to relieve her symptoms by walking in a swimming pool yesterday. She states the pool was cold and she believes that this exacerbated her symptoms. She states she also has tooth pain in the location of a tooth with a previous crown. She states that she has home oral pain medications and would like an injection of a narcotic pain medication. She does have an appointment with a dentist later this afternoon to assess her tooth and undergo further intervention for the tooth that is bothering her. She has no other complaints. Allergies: Coded Allergies: IBUPROFEN (Verified Allergy, Mild, Rash, 08/27/18) TETRACYCLINE (Verified Allergy, Mild, Rash, 08/27/18) UNKNOWN ASPIRIN (Verified Allergy, Unknown, Rash, 08/27/18) Patient History Past Medical History: see triage record, other - Chronic pain, arthritis Past Surgical History: other - Spinal surgeries/fusion Social History: Denies: smoking, alcohol use, drug use Reviewed Nursing Documentation: PMH: Agreed; PSxH: Agreed Nursing Documentation-PMH Past Medical History: No History, Except For Hx Cardiac Problems: No - ARTHRITIS, SCIATICA, ankle surgery Hx Hypertension: Yes - Hep C Hx Asthma: No Hx Diabetes: No Hx Cancer: No Hx Gastrointestinal Problems: No Hx Parkinson's Disease: No Hx Seizures: No Review of Systems All Other Systems: negative except mentioned in HPI Physical Exam Vital Signs Date Time Temp Pulse Resp B/P (MAP) Pulse Ox O2 Delivery O2 Flow Rate FiO2 11/03/19 06:10 97.9 63 18 120/69 (86) 99 Room Air Sp02 EP Interpretation: reviewed, normal General Appearance: no apparent distress, alert, GCS 15, non-toxic Head: normocephalic, atraumatic ENT: hearing grossly normal, no angioedema, normal voice, other - Tooth 12 capped without surrounding erythema, normal gums. Neck: normal inspection Respiratory: no respiratory distress, no retraction, no accessory muscle use, speaking full sentences Rectal: deferred Musculoskeletal: gait/station normal, other - sitting comfortably in the hallway and walking the hallway at the end of her ED stay. Neurologic: alert, motor strength/tone normal, oriented x3, responsive, speech normal, grossly normal Psychiatric: judgement/insight normal, memory normal, mood/affect normal, no suicidal/homicidal ideation Skin: normal color Medical Decision Making Diagnostic Impression: Primary Impression: Chronic pain Additional Impression: Pain, dental ER Course This patient has a clinical presentation consistent with mechanical back pain, chronic pain and narcotic seeking behavior. No emergency etiology was identified. This patient has chronic pain. She is seen regularly in the emergency department requesting narcotics. When I inquired into why she was not going to her pain management physician, she stated that her pain management physician said she could come the emergency department to get IV narcotics if she needed it for "breakthrough." I am uncomfortable treating chronic pain with IV or IM narcotics as this is not effective in long-term pain management or indicated for chronic pain. The patient has no new injury and therefore does not require acute pain management. The patient can easily go see her chronic pain physician. I offered the patient oral narcotics and initially she adamantly refused stating that she has that at home and it does not work for her. She then demanded to speak with "my shipping and receiving supervisor." She became very angry and began using terms to describe me to include "rude," "cold-hearted animal." I explained to the patient that IV or IM narcotics are only effective for a couple hours and do not improve chronic pain. The patient's pain would then recur within the next 2 hours and would require re-dosing and is essentially ineffective in the long-term treatment of chronic pain. I am uncomfortable giving IM or IV narcotics in this situation. I declined further requests for the same. Later in the patient's ED course, after not receiving the requested stronger pain medications, the patient did agree to oral pain medication. Before the patient left the emergency department she then proceeded to berated me repeatedly calling me an "animal." She states that she is going to report me and the nursing staff in a long letter. She was very angry and indignant whenever I instructed her to follow-up with her pain management physician. The patient continued to call me names any time I walked by her in the hallway. She then began harassing the nurse stating to the nurse that she had given her a 5/325mg norco instead of a 10/325 norco which is what she received. She was given [place] 10 mg/325, a Lidoderm patch and oral Flexeril as deemed appropriate by myself for her chronic pain. This patient's behavior is consistent with narcotic seeking and opioid dependence. The patient was walking around normally without any evidence of discomfort. She would not stay in her assigned room and would verbally harass me in the hallway each time I walked by. The patient stated that I did not examine her thoroughly. Patient had become agitated at me when I was speaking with her initially and verbally angry so I was unable to complete a full exam or history. The patient did not like my demeanor in the initial evaluation and contact with the patient. I did examine the patient's oral cavity and there was no evidence of emergency medical condition or emergency dental diagnosis. I did not fully do a physical exam because the patient was so angry and relentlessly calling me rude. The patient in the hallway continued to berate me and stated I did not fully examine her, I offered to examine her at that time. The patient stated "it is too late." The patient was walking around normally sitting and standing normally and very active. The patient kept repeating that she is "reporting" me. I did not feel that this patient has an emergency medical condition that requires my intervention. The patient became so angry and agitated that further interaction between myself and her would not lead to a positive experience for either green party. The screening exam did not identify an emergency medical condition. I believe this patient has a narcotic and opioid addiction and is attempting to receive this for this purpose. The patient was angry and less very unhappy from the emergency department demanding the emergency medical service manager contact information. She also spoke with the charge nurse and the nursing shipping and receiving supervisor. Last Vital Signs Date Time Temp Pulse Resp B/P (MAP) Pulse Ox O2 Delivery O2 Flow Rate FiO2 11/03/19 06:20 97.9 18 120/69 99 Room Air 11/03/19 06:10 63 Disposition: HOME, SELF-CARE Condition: Stable Referrals: [facility] (PCP) Additional Instructions: The Emergency Department only prescribes CONTROLLED SUBSTANCES for acute injuries. There is no evidence of an emergent condition requiring the requested medication refill, or injectable pain medication, and no evidence of an acute injury. Controlled substances are very addictive and require close monitoring when being prescribed controlled substances an outpatient treatment The emergency department is not a resource to be used as outpatient followup, and therefore reserve the regular prescribing, or refill or regularly prescribed controlled substances for your PCP or your chronic pain management provider for your safety -- We urge you to follow up with your PRIMARY CARE DOCTOR who can fully evaluate you , Monitor your condition and safely prescribe any necessary medications that are controlled. Tiffany Leggett DO Nov 03, 2019 07:38
[2019-11-03] MEDS ORDERED: Cyclobenzaprine 10mg Tab ORAL ONE (07:45)
[2019-11-03] MEDS ORDERED: HYDROcodone/Acetamin 10/325 tab ORAL ONE (07:45)
[2019-11-03 08:45] VITALS: BP 122/73
--- NOTE | 2019-11-03 08:45 | NUR ---
ED Nurse Note: Pt cleared by ERMD for discharge. DC instructions was given and explained to pt and verbalized understanding of teachings. All medical deviecs such as ID band removed. Pt is AAO x4, ambulatory and left with all personal belongings.
--- NOTE | 2019-11-03 08:45 | NUR ---
ED Nurse Note: Patient came in to ED c/o toothache. ERMD went to the bedside to physically see the patient. ERMD ordered Tylenol #3 but patient refused to take the medication and stated that medication wont help her pain and she needs something that is a stronger one. Explained risk and benefits to the patient, verbally understood. Charge nurse attention was called, came in to the room and spoke with the patient. ERMD notified and ordered another pain medications which are [place] 10/ 325mg and Flexeril. Patient took the medication but still stating that it wont help her and that she is still in a lot of pain. Patient started to complain about the treatment she is getting. Reports that the doctor was not physically assess and "touch" her. Also reports that, the Nurse only gave her 5/325mg of [place]. Charge nurse addressed the said complaint. Nursing compounding and finishing supervisor was called too to speak with the patient. As to discharge summary, patient wants to redo her dischage summary. Incident report was filed.
== END 2019-11-03 08:45 | disposition home or self-care (01) ==
LOC: EMR 06:49
DX: G89.29 Other chronic pain (principal); K08.89 Other specified disorders of teeth and supporting structures; Z76.5 Malingerer [conscious simulation]; M54.30 Sciatica, unspecified side; I10 Essential (primary) hypertension; Z88.6 Allergy status to analgesic agent; Z88.1 Allergy status to other antibiotic agents
CPT/HCPCS: 99282

== ENCOUNTER 2020-05-04 03:18 | Emergency (ER) | payer MEDICAID ==
[~2020-05-04] VITALS: Ht 165.1 cm; Wt 48.5 kg
[2020-05-04 03:35] VITALS: BP 134/71
[2020-05-04] MEDS ORDERED: HYDROmorphone 1mg/ml Carpuject IM ONE (03:45)
--- NOTE | 2020-05-04 03:48 | Emergency Room Report ---
History of Present Illness General Chief Complaint: Lower Back Pain or Injury Source: Patient, Medical Record Present Illness HPI This a 55-year-old female with a history of chronic neck and back pain status post failed surgery. She is taking oxycodone at home already. She presents with exacerbation of neck and back pain. Also has dental pain is been a chronic issue. She saw dentist recently for it. Because of the pandemic, she is unable to do physical therapy with pool therapy. This caused her pain to be worsen. Worse tonight where she cannot sleep so she came in. She said pain is 10 out of 10. Worse with movement. Better with rest. No incontinence of bowel or urine. No trauma. No fever chills. Allergies: Coded Allergies: IBUPROFEN (Verified Allergy, Mild, Rash, 08/27/18) TETRACYCLINE (Verified Allergy, Mild, Rash, 08/27/18) UNKNOWN AMPICILLIN (Verified Allergy, Unknown, 05/04/20) ASPIRIN (Verified Allergy, Unknown, Rash, 08/27/18) COVID-19 Screening Contact w/high risk pt: No Recent Travel to affected area: No Experienced COVID-19 symptoms?: No COVID-19 Testing performed BUYER RENTER: No Patient History Past Medical History: see triage record, old chart reviewed Past Surgical History: other Pertinent Family History: none Social History: Denies: smoking Now: No : 0 Para: 0 Immunizations: other Reviewed Nursing Documentation: PMH: Agreed; PSxH: Agreed Nursing Documentation-PMH Hx Cardiac Problems: No - ARTHRITIS, SCIATICA, ankle surgery Hx Hypertension: Yes - Hep C Hx Asthma: No Hx Diabetes: No Hx Cancer: No Hx Gastrointestinal Problems: No Hx Parkinson's Disease: No Hx Seizures: No Review of Systems Eye: Denies: eye pain, blurred vision ENT: Denies: ear pain, nose congestion, throat swelling Respiratory: Denies: cough, shortness of breath Cardiovascular: Denies: chest pain, palpitations Gastrointestinal: Denies: abdominal pain, diarrhea, nausea, vomiting Musculoskeletal: Reports: back pain; Denies: joint pain Skin: Denies: rash Neurological: Denies: headache, numbness Endocrine: Denies: increased thirst, increased urine Hematologic/Lymphatic: Denies: easy bruising All Other Systems: negative except mentioned in HPI Physical Exam Vital Signs Date Time Temp Pulse Resp B/P (MAP) Pulse Ox O2 Delivery O2 Flow Rate FiO2 6/12/20 03:24 97.5 91 17 134/71 (92) 98 Room Air Normal Sp02 EP Interpretation: reviewed, normal General Appearance: well appearing, no apparent distress, alert Head: normocephalic, atraumatic Eyes: bilateral eye PERRL, bilateral eye EOMI ENT: hearing grossly normal, normal pharynx, other - Dental showed no obvious issue. Neck: full range of motion, supple, no meningismus Respiratory: chest non-tender, lungs clear, normal breath sounds Cardiovascular #1: regular rate, rhythm, no murmur Gastrointestinal: normal bowel sounds, non tender, no mass, no organomegaly, no bruit, non-distended Musculoskeletal: back normal, normal range of motion, gait/station normal Psychiatric: mood/affect normal Medical Decision Making Diagnostic Impression: Primary Impression: Chronic pain Qualified Codes: G89.4 - Chronic pain syndrome ER Course Patient presents with exacerbation of chronic pain. No evidence of any trauma. No evidence of any infection. No cauda equina syndrome, spinal epidural abscess or neoplastic process. Will discharge home. Last Vital Signs Date Time Temp Pulse Resp B/P (MAP) Pulse Ox O2 Delivery O2 Flow Rate FiO2 05/04/20 03:24 97.5 91 17 134/71 (92) 98 Room Air Status: improved Disposition: HOME, SELF-CARE Condition: Stable Referrals: [facility] (PCP) Additional Instructions: Follow-up with your doctor in 7 days. Call to see if you could restart physical therapy. Return if worse. Gautam Bourgeois MD May 04, 2020 03:47
[2020-05-04 03:55] VITALS: BP 132/74
== END 2020-05-04 03:55 | disposition home or self-care (01) ==
LOC: EMR 03:40
DX: M54.2 Cervicalgia (principal); M54.9 Dorsalgia, unspecified; Z88.6 Allergy status to analgesic agent; Z88.0 Allergy status to penicillin; M19.90 Unspecified osteoarthritis, unspecified site; Z86.19 Personal history of other infectious and parasitic diseases; G89.29 Other chronic pain
CPT/HCPCS: 96372; J1170; Z7502; 99283

== ENCOUNTER 2020-07-31 22:39 | Emergency (ER) | payer MEDICAID ==
[~2020-07-31] VITALS: Ht 165.1 cm; Wt 48.5 kg
[2020-07-31 22:50] VITALS: BP 126/73
--- NOTE | 2020-07-31 22:50 | NUR ---
ED Nurse Note: WALKED IN TO ED C/O HEADACHE AND NECK PAIN. DENIES ANY OTHER COMPLAINTS OR TRAUMA. VSS, NAD, AAOX4, AMBULATORY, ERMD AT BEDSIDE
[2020-07-31] MEDS ORDERED: HYDROcodone/Acetamin 7.5/325 tab ORAL ONE (23:15)
[2020-07-31] MEDS ORDERED: Methocarbamol 750mg tab ORAL ONE (23:15)
--- NOTE | 2020-07-31 23:18 | Emergency Room Report ---
History of Present Illness General Chief Complaint: Headache Source: Patient Present Illness HPI Disclaimer: Please note that this report is being documented using [employer] technology. This can lead to erroneous entry secondary to incorrect interpretation by the dictating instrument. HPI: Is a 55-year-old female with a history of degenerative disease, arthritis, multiple back surgeries presenting for evaluation of exacerbation of arthritis. Patient states she has stiffness in the base of the neck from an acute exacerbation of arthritis triggered by using her air conditioning unit over the past few days. She reports chronic back pain in the lower back status post failed disc repair surgery as well as pain in the left ankle after a fall several weeks ago. This fall was evaluated by her PMD and imaging reportedly negative. Patient is receiving chronic opiates from statuary painter and states the oxycodone she is prescribed is not relieving her pain currently. Patient participates in pool physiotherapy however due to the COVID-19 pandemic the sessions have been canceled. She reports associated posterior headache at the base of the cranium which she states is from the neck pain. Denies dizziness, vision changes, fever, chills, numbness, tingling, weakness. Headache has been gradual onset. Does not take anticoagulants. No history of intracranial bleed. Patient is ambulatory on the ankle without assistance. She states she stopped wearing the Marc wrap prescribed to let her ankle "breathe." She is requesting pain medication for breakthrough pain at this time. She states the oxycodone she is prescribed is no longer working. PMH: Degenerative disc disease PSH: Multiple back surgeries Allergies: Ampicillin, aspirin, ibuprofen, Toradol, tetracycline Social Hx: Denies drug or alcohol abuse Allergies: Coded Allergies: IBUPROFEN (Verified Allergy, Mild, Rash, 08/27/18) TETRACYCLINE (Verified Allergy, Mild, Rash, 08/27/18) UNKNOWN AMPICILLIN (Verified Allergy, Unknown, 05/04/20) ASPIRIN (Verified Allergy, Unknown, Rash, 08/27/18) COVID-19 Screening Contact w/high risk pt: No Recent Travel to affected area: No Experienced COVID-19 symptoms?: No COVID-19 Testing performed EDUCATIONAL DIAGNOSTICIAN: No Patient History Last Menstrual Period: 2014 Now: No : 0 Para: 0 Nursing Documentation-PMH Hx Cardiac Problems: No - ARTHRITIS, SCIATICA, ankle surgery Hx Hypertension: Yes Hx Asthma: No Hx Diabetes: No Hx Cancer: No Hx Gastrointestinal Problems: No Hx Neurological Problems: Yes - back sx, hep c Hx Parkinson's Disease: No Hx Seizures: No Review of Systems All Other Systems: negative except mentioned in HPI Physical Exam Vital Signs Date Time Temp Pulse Resp B/P (MAP) Pulse Ox O2 Delivery O2 Flow Rate FiO2 07/31/20 22:48 98.6 90 18 130/88 (102) 97 Room Air General: Awake and alert, no acute distress HEENT: NC/AT. EOMI. PERRLA. No nystagmus. Symmetrical facial expressions. Resp: Normal work of breathing. Skin: Intact. No abrasions, laceration or rash over the exposed skin MSK: Normal tone and bulk. Moving all extremities. No obvious deformity. Neuro: Awake and alert. Mentating appropriately. Spine: Moderate midline and paraspinal tenderness in the cervical spine extending over the trapezius bilaterally, left greater than right. Trigger point at the base of the neck on the left side. Medical Decision Making Diagnostic Impression: Primary Impression: Cervical arthritis Additional Impressions: Cervical paraspinal muscle spasm Chronic pain following surgery or procedure ER Course Is a 55-year-old female presenting for evaluation of exacerbation of arthritis in the neck. No acute trauma reported. Patient's history and physical exam most consistent with chronic pain from arthritis with possible superimposed spasm of the cervical paraspinal muscles and trapezius. Little clinical concern for spontaneous intracranial hemorrhage, atraumatic fracture, cauda equina syndrome, spinal epidural abscess or other significant pathology. Patient states she needs medication for breakthrough pain and is requesting IV morphine. I offered the patient lidocaine patches, Robaxin and Toradol to treat arthritis and spasm. Patient stated she is allergic to Toradol, aspirin, ibuprofen and other NSAIDs. I offered the patient Tylenol but she said this was ineffective. I also offered lidocaine and gabapentin but states these were also ineffective. Patient has active prescription medication for oxycodone and states she has additional pills at home. She states she did not take oxycodone today because she wanted an IV dose of pain medication. Offered the patient an oral dose [place] in the ED as she said she did not take her evening oxycodone. She initially refused and asked again for IV morphine and then bargained for intramuscular morphine. I discussed medication guidelines for atraumatic pain and muscle spasm with patient however she stated that "the government would be okay with this because they know my history." She eventually accepted the oral medications and lidocaine patch. She declined re-wrapping of the left ankle with an Marc bandage. I encouraged her to speak with her pain management physician and PMD in the morning to discuss her current pain medication regimen. She was able to safely ambulate from the emergency department. She is stable for outpatient follow-up. Last Vital Signs Date Time Temp Pulse Resp B/P (MAP) Pulse Ox O2 Delivery O2 Flow Rate FiO2 07/31/20 22:48 98.6 90 18 130/88 (102) 97 Room Air Disposition: HOME, SELF-CARE Condition: Stable Scripts Methocarbamol* (METHOCARBAMOL*) 750 Mg Tablet 750 MG ORAL FOUR TIMES A DAY PRN for For Pain, #20 TAB 0 Refills Prov: Yunier Cheema MD 07/31/20 Lidocaine (Lidocaine) 1 Each Adh..patch 700 MG TP DAILY, #30 PATCH Prov: Yunier Cheema MD 07/31/20 Referrals: [facility]ERR[facility] (PCP) Yunier Cheema MD Jul 31, 2020 23:18
[2020-07-31] MEDS ORDERED: LIDOCAINE700 M1 TP (23:20)
[2020-07-31] MEDS ORDERED: METHOCARBAMOL750 MG ORAL (23:20)
[2020-07-31 23:30] VITALS: BP 125/67
[2020-07-31 23:40] VITALS: BP 125/67
== END 2020-07-31 23:40 | disposition home or self-care (01) ==
LOC: EMR 23:04
DX: M47.812 Spondylosis without myelopathy or radiculopathy, cervical region (principal); M62.838 Other muscle spasm; G89.29 Other chronic pain; Z86.19 Personal history of other infectious and parasitic diseases; I10 Essential (primary) hypertension; Z88.6 Allergy status to analgesic agent
CPT/HCPCS: 99282

== ENCOUNTER 2020-08-25 01:00 | Emergency (ER) | payer MEDICAID ==
[~2020-08-25] VITALS: Ht 165.1 cm; Wt 49.0 kg
[~2020-08-25 01:00] MED LIST changes: +METHOCARBAMOL750 MG ORAL
[2020-08-25 01:10] VITALS: BP 143/73
--- NOTE | 2020-08-25 01:10 | NUR ---
ED Nurse Note: Patient walked into ED for c/o back and neck pain that is chronic for patient. She is requesting pain medication for break through pain at this time. Patient states she caught her mother from a fall recently and pulled a back muscle while doing so which exacerbated the pain. She denies any other trauma. Patient is aaox4, breathing is normal. She is ambulatory with steady gait.
--- NOTE | 2020-08-25 01:15 | NUR ---
ED Nurse Note: JAZMINE bedside speaking with patient. Patient is displaying drug seeking behavior and is requesting IV pain medicaiton. She states she can have narcotics for break through pain without violating her pain medication contract. Patient does not appear to be in any distress at this time. When patient is in room by herself and no staff is present, she is resting comfortably in bed with eyes closed. When staff approaches patient, she begins moaning and grasping her back and neck. Patient is able to ambulate with steady gait.
--- NOTE | 2020-08-25 01:39 | NUR ---
ED Nurse Note: Gabapentin 600mg capsule is not in ER pyxis as ordered. 2-300mg gabapentin capsules pulled from pyxis and administered.
[2020-08-25] MEDS ORDERED: Methocarbamol 750mg tab ORAL ONE (01:45)
[2020-08-25] MEDS ORDERED: HYDROcodone/Acetamin 10/325 tab ORAL ONE (01:45)
[2020-08-25] MEDS ORDERED: LIDODERM700 M1 TOPIC (01:50)
[2020-08-25] MEDS ORDERED: ROBAXIN-750750 MG PO (01:50)
[2020-08-25] MEDS ORDERED: GABAPENTIN100 MG ORAL (01:50)
--- NOTE | 2020-08-25 01:50 | Emergency Room Report ---
History of Present Illness General Chief Complaint: Back Pain-No Injury Source: Patient Present Illness HPI 55-year-old female with past medical history of chronic back pain, cervical disc disease, degenerative joint disease presents with left shoulder spasm x1 day. Patient was with her mother helping her move some things and she went to go catch her mother as she was falling, which strained her left shoulder. She tried taking her prescribed oxycodone at home, however this did not help. She not hit her head or lose consciousness. She denies any focal weakness, midline back pain, headache, neck pain, rash, fever, chills, vision changes, chest pain, shortness of breath, or other symptoms. She did not call her chronic pain doctor or her primary care doctor to come here to the emergency department. Of note, she recently had a lumbar MRI that was completely normal The patient's symptoms were chronic onset, severity was mild, duration since 1 day. Quality: Aching Past medical history: Chronic pain, cervical disc disease, degenerative joint disease Past surgical history: L5/S1 back surgery, left ankle surgery Smoking: Denies Alcohol use: Denies Drug use: Denies Review of systems: CONST: No fevers or chills, No night sweats PULMONARY: No productive cough, No shortness of breath CARDIAC: No chest pain, No palpitations GI: No vomiting, No diarrhea , No melena_or_BRBPR : No dysuria, No hematuria, No discharge NEURO: No new_focal_weakness_or_numbness, No confusion, No vision changes 14 point Review of Systems is otherwise negative except per HPI Physical Exam: GENERAL: Awake_alert_ nontoxic, no acute distress Spo2 99% on RA -normal EYES: Extraocular muscles are intact. Conjunctivae clear. Lids without swelling ENT: External nose and ear normal_in_appearance. Oropharynx clear. Head_a traumatic, Moist_oral_mucosa NECK: No JVD. No meningismus. No thyromegaly. Supple. Trachea midline RESP: Normal respiratory effort. Symmetric rise. No stridor. Clear_to_auscultation_No_rales_No_wheezes CARDIAC: Regular rate and regular rhytm. No_significant pedal edema. ABDOMEN: Soft. Nondistended. Nontender_No_rebound_or_guarding. MSK: Normal muscle tone, without rigidity. Extremities without asymmetric deformity or swelling. SKIN: Warm and dry. No visible cyanosis or pallor NEUROLOGIC: Alert, oriented x3. Motor_and_sensation_grossly_intact. No truncal ataxia. Gait_normal Psych: Normal mood and affect, normal judgment and insight - COORDINATION OF CARE Case was discussed with: Patient Any labs and imaging that were ordered were interpreted as part of the medical decision making: Medical Decision Making/Plan: Differential diagnosis: Muscle sprain/strain versus chronic osteoarthritis versus degenerative joint disease versus degenerative disc disease DOUBT acute vertebral fracture, spinal epidural abscess, spinal epidural hematoma, AAA, among others. Vitals are unremarkable. Left upper extremity is neurovascularly intact with full strength in flexion, extension, internal/external rotation. Compartments of the left upper extremity are atraumatic, soft, and compressible. On exam, pulses are equal and symmetric bilaterally. No focal neurologic defic its noted. No midline spinal step offs or deformities appreciated. There is no midline spinal pain. She has full range of motion of her neck and upper thorax in flexion, extension side bending, and rotation The patient has no significant red flags on history or exam. No mechanism for significant trauma. Patient has no vertebral deformity or midline tenderness and has a normal gait. Patient has no significant risk factors for spinal epidural emergency such as fever, IVDU, HIV, or anticoagulant use. Patient is neurologically intact without any lower extremity weakness / numbness, saddle anesthesia, urinary retention or fecal incontinence. No evidence of any emergent process of the spinal cord or cauda equina at this time. The patients symptoms appear consistent with a musculoskeletal origin. She has multiple allergies including Toradol, Motrin, aspirin, and states that Tylenol does not work well enough for her. I did perform a CURES check. I confirmed with her that she is on a chronic pain contract seeing Dr. Deniz Yadav, with last visit on August 03, 2020 where she was prescribed oxycodone 10 mg p.o. #150 tabs. She comes to the ER frequently for IV/IM medications for her chronic pain. I offered patient only oral pain medications today -- multimodal to address her likely muscle strain. She initially refused, again asking for IV medications. She then accepts norco, robaxin, and gabapentin. She again asked for IV medications which we discussed will not control her pain long-term. I encouraged patient to follow up with her chronic pain specialist in 1-2 days. Her pain still was not addressed with PO. She was give one dose of morphine IM with full relief of symptoms Pertinent results reviewed with the patient. I educated the patient on the current treatment plan including the risks, benefits, and alternatives. I also discussed the extent and limitations of the current evaluation. The patient expressed understanding and agreement with plan. I recommended chronic pain specialist for follow-up within 1-2 days. Also advised that the patient return to the Emergency Department as soon as possible if they experience any new, persistent, or worsening symptoms. The patient was counseled that they need to see their primary medical doctor in the next 1-2 days for reevaluation and further treatment, and to return immediately if symptoms change or worsen. Allergies: Coded Allergies: IBUPROFEN (Verified Allergy, Mild, Rash, 08/27/18) TETRACYCLINE (Verified Allergy, Mild, Rash, 08/27/18) UNKNOWN AMPICILLIN (Verified Allergy, Unknown, 05/04/20) ASPIRIN (Verified Allergy, Unknown, Rash, 08/27/18) COVID-19 Screening Contact w/high risk pt: No Recent Travel to affected area: No Experienced COVID-19 symptoms?: No COVID-19 Testing performed RADIO TALK SHOW HOST: No Nursing Documentation-PMH Hx Cardiac Problems: No - ARTHRITIS, SCIATICA, ankle surgery Hx Hypertension: Yes Hx Asthma: No Hx Diabetes: No Hx Cancer: No Hx Gastrointestinal Problems: No Hx Neurological Problems: Yes - back sx, hep c Hx Parkinson's Disease: No Hx Seizures: No Physical Exam Vital Signs Date Time Temp Pulse Resp B/P (MAP) Pulse Ox O2 Delivery O2 Flow Rate FiO2 08/25/20 01:05 97.9 82 18 143/73 (96) 99 Room Air Sp02 EP Interpretation: reviewed, normal Medical Decision Making Diagnostic Impression: Primary Impression: Cervical paraspinal muscle spasm Additional Impressions: Chronic pain Cervical arthritis Last Vital Signs Date Time Temp Pulse Resp B/P (MAP) Pulse Ox O2 Delivery O2 Flow Rate FiO2 08/25/20 01:05 97.9 82 18 143/73 (96) 99 Room Air Disposition: HOME, SELF-CARE Admit Decision Time: 01:47 Condition: Stable Scripts Lidocaine Patch* (Lidoderm Patch*) 1 Each Adh..patch 1 PATCH TOPIC DAILY, #7 PATCH 0 Refills Patch(es) may remain in place for up to 12 hours in any 24-hour period. Prov: Myers,Jaja D.O. 08/25/20 Gabapentin* (GABAPENTIN*) 100 Mg Capsule 200 MG ORAL THREE TIMES A DAY for 7 Days, #21 CAP Prov: Jaja Myers D.O. 08/25/20 Methocarbamol* (ROBAXIN-750*) 750 Mg Tablet 750 MG PO QID, #28 TAB 0 Refills Prov: Jaja Myers D.O. 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 Do not take oxycodone and robaxin and drive as both are sedating. Use heat packs on your left shoulder for your muscle spasm Follow-up with your doctor sooner if your condition requires a more timely clinical reevaluation. Return to the emergency department immediately if you feel that your condition is worsening or if you have any new or concerning symptoms. Review your discharge instructions and take any prescriptions given as instructed. [facility] PROVIDES FREE OR LOW-COST HEALTH SERVICES TO PEOPLE WHO CAN SHOW PROOF THAT THEY LIVE IN [facility]. TO FIND MORE CLINICS PARTNERED WITH THE [facility] TO PROVIDE SERVICE, PLEASE CALL . Jaja Myers D.O. Aug 25, 2020 01:50
[2020-08-25] MEDS ORDERED: Morphine Sulfate 2mg/ml Inj(IV/IM USE ONLY) IM ONE (02:30)
[2020-08-25 02:39] VITALS: BP 137/73
[2020-08-25 02:47] VITALS: BP 137/73
== END 2020-08-25 02:47 | disposition home or self-care (01) ==
LOC: EMR 01:10
DX: M62.838 Other muscle spasm (principal); G89.29 Other chronic pain; M47.812 Spondylosis without myelopathy or radiculopathy, cervical region; I10 Essential (primary) hypertension; Z86.19 Personal history of other infectious and parasitic diseases; Z88.6 Allergy status to analgesic agent
CPT/HCPCS: 96372; J2270; Z7502; 99283

== ENCOUNTER 2021-02-10 23:11 | Emergency (ER) | payer MEDICAID ==
[~2021-02-10] VITALS: Ht 165.1 cm; Wt 48.5 kg
[~2021-02-10 23:11] MED LIST changes: +GABAPENTIN100 MG ORAL; +ROBAXIN-750750 MG PO
--- NOTE | 2021-02-10 23:28 | Emergency Room Report ---
History of Present Illness General Chief Complaint: Neck Pain Source: Patient Present Illness HPI This is a 55-year-old female with history of failed back surgery. She also has chronic knee pain and is waiting authorization for hyaluronic acid injection. She presents with chief complaint of knee pain and neck and back pain. She said that she was on her dad's boat and as she was walking down the steps she slipped and twisted her knee. Since then the knee has been hurting and does exacerbate her back and neck pain. Her oxycodone is not helping. No direct trauma. No fever chills but no incontinence of bowel or urine. Nothing made it better. Nothing made it worse. Allergies: Coded Allergies: IBUPROFEN (Verified Allergy, Mild, Rash, 08/27/18) TETRACYCLINE (Verified Allergy, Mild, Rash, 08/27/18) UNKNOWN AMPICILLIN (Verified Allergy, Unknown, 05/04/20) ASPIRIN (Verified Allergy, Unknown, Rash, 08/27/18) COVID-19 Screening Contact w/high risk pt: No Recent Travel to affected area: No Experienced COVID-19 symptoms?: No COVID-19 Testing performed NEWSPAPER LIBRARY MANAGER: No Patient History Past Medical History: see triage record, old chart reviewed Past Surgical History: other Pertinent Family History: none Social History: Denies: smoking Now: No Immunizations: other Reviewed Nursing Documentation: PMH: Agreed; PSxH: Agreed Nursing Documentation-PMH Hx Cardiac Problems: No - ARTHRITIS, SCIATICA, ankle surgery Hx Hypertension: Yes Hx Asthma: No Hx Diabetes: No Hx Cancer: No Hx Gastrointestinal Problems: No Hx Neurological Problems: Yes - back sx, hep c Hx Parkinson's Disease: No Hx Seizures: No Review of Systems Eye: Denies: eye pain, blurred vision ENT: Denies: ear pain, nose congestion, throat swelling Respiratory: Denies: cough, shortness of breath Cardiovascular: Denies: chest pain, palpitations Gastrointestinal: Denies: abdominal pain, diarrhea, nausea, vomiting Musculoskeletal: Reports: back pain, joint pain Skin: Denies: rash Neurological: Denies: headache, numbness Endocrine: Denies: increased thirst, increased urine Hematologic/Lymphatic: Denies: easy bruising All Other Systems: negative except mentioned in HPI Physical Exam Vital Signs Date Time Temp Pulse Resp B/P (MAP) Pulse Ox O2 Delivery O2 Flow Rate FiO2 02/10/21 23:13 99.0 82 18 151/71 (97) 100 Vitals with high blood pressure Sp02 EP Interpretation: reviewed, normal General Appearance: well appearing, no apparent distress, alert Head: normocephalic, atraumatic Eyes: bilateral eye PERRL, bilateral eye EOMI ENT: hearing grossly normal, normal pharynx Neck: full range of motion, supple, no meningismus Respiratory: chest non-tender, lungs clear, normal breath sounds Cardiovascular #1: regular rate, rhythm, no murmur Gastrointestinal: normal bowel sounds, non tender, no mass, no organomegaly, no bruit, non-distended Musculoskeletal: back normal, normal range of motion, gait/station normal Psychiatric: mood/affect normal Medical Decision Making Diagnostic Impression: Primary Impression: Neck pain Additional Impression: Chronic pain Qualified Codes: G89.4 - Chronic pain syndrome ER Course Patient with exacerbation of chronic back pain and neck pain. No evidence of trauma. No evidence of cauda equina syndrome, spinal epidural abscess or neoplastic process. Last Vital Signs Date Time Temp Pulse Resp B/P (MAP) Pulse Ox O2 Delivery O2 Flow Rate FiO2 02/10/21 23:13 99.0 82 18 151/71 (97) 100 Status: improved Disposition: HOME, SELF-CARE Condition: Stable Referrals: [facility],REFERRING (PCP) Additional Instructions: Follow-up with your doctor in 7 days. Return if symptoms worsen. Gautam Bourgeois MD Feb 10, 2021 23:28
[2021-02-10] MEDS ORDERED: HYDROmorphone 1mg/ml Carpuject IM ONE (23:30)
[2021-02-10] MEDS ORDERED: HYDROmorphone 1mg/ml Carpuject ONE (23:38)
[2021-02-10 23:50] VITALS: BP 146/72
--- NOTE | 2021-02-10 23:52 | NUR ---
ED Nurse Note: Pt from home c/o of chronic pain not able to recieve medication from primary care physician until next week, but currently having severe pain, pt is aox4 ambulatory, vitals stable, pt stated did not drive here herself
== END 2021-02-11 00:05 | disposition home or self-care (01) ==
LOC: EMR 23:20
DX: M54.2 Cervicalgia (principal); G89.4 Chronic pain syndrome; M25.562 Pain in left knee; M25.561 Pain in right knee; M54.9 Dorsalgia, unspecified; Z88.6 Allergy status to analgesic agent; M19.90 Unspecified osteoarthritis, unspecified site; Z86.19 Personal history of other infectious and parasitic diseases
CPT/HCPCS: 96372; J1170; Z7502; 99283